=== PATIENT | male | born 1975 | race Caucasian/White ===

== ENCOUNTER 2018-03-26 09:07 | Day surgery (SDC) | payer OTHER ==
[2018-03-26] MEDS ORDERED: PROPOFOL 80 ML (09:30)
[2018-03-26] MEDS ORDERED: LIDOCAINE 2% (SDV) 5 ML INJ (09:30)
== END 2018-03-26 11:50 | disposition home or self-care (01) ==
LOC: GIL 09:07
DX: R19.4 Change in bowel habit (principal); K44.9 Diaphragmatic hernia without obstruction or gangrene; K21.0 Gastro-esophageal reflux disease with esophagitis; K29.60 Other gastritis without bleeding; K64.8 Other hemorrhoids
CPT/HCPCS: 43239; 87081; 88305; 88312